=== PATIENT | male | born 1985 | race Caucasian/White ===

== ENCOUNTER 2018-09-28 16:11 | Emergency (ER) | payer MEDICAID ==
[~2018-09-28] VITALS: Ht 175.3 cm; Wt 91.6 kg
[2018-09-28 16:26] VITALS: Ht 175.3 cm; Wt 91.6 kg
[2018-09-28 18:39] LABS: BASOPHIL % 0.6 % (0-2); RED CELL DISTRIBUTION WIDTH 12.8 % (11.5-14.5)
[2018-09-28 18:42] LABS: PLATELET COUNT 416 x10^3mcL (130-400)
[2018-09-28 18:44] LABS: CALCIUM 8.6 mg/dL (8.5-10.1); CARBON DIOXIDE 32.5 mmol/L (21-32); CHLORIDE SERUM 103 mmol/L (98-107); GFR1 > 60 mL/min; GLUCOSE SERUM 96 mg/dL (74-106); POTASSIUM SERUM 3.9 mmol/L (3.5-5.1); SODIUM SERUM 142 mmol/L (136-145)
[2018-09-28 18:51] LABS: ALBUMIN 4.1 g/dL (3.4-5.0); ALKALINE PHOSPHATASE 104 U/L (46-116); ALT/SGPT 46 U/L (16-63); AST/SGOT 28 U/L (15-37); BILIRUBIN TOTAL 0.3 mg/dL (0.20-1.00); TOTAL PROTEIN, SERUM 8.9 g/dL (6.4-8.2)
[2018-09-28 20:21] VITALS: BP 148/83
== END 2018-09-28 20:21 | disposition home or self-care (01) ==
LOC: ED 16:11
PROVIDERS: Emergency Medicine
DX: L03.116 Cellulitis of left lower limb (principal); L03.115 Cellulitis of right lower limb; L53.9 Erythematous condition, unspecified
CPT/HCPCS: 36415; 82962; J0696; J1885